=== PATIENT | male | born 1980 ===

== ENCOUNTER 2022-09-23 14:20 | Emergency (ER) | payer OTHER, SELFPAY ==
--- NOTE | 2022-09-23 15:35 | DI.RAD.S_ITS ---
PROCEDURE: XR SHOULDER RT MIN 2V INDICATIONS: injury, heavy lifting TECHNIQUE: 3 views of the shoulder were acquired. COMPARISON: [facility], CR, XR ELBOW RT MIN 3V, 09/23/2022, 15:49. FINDINGS: Bones: No fractures or dislocations. No suspicious bony lesions. Visualized ribs appear intact. Soft tissues: No suspicious soft tissue calcifications. The visualized lung demonstrates an unremarkable appearance. IMPRESSION: No focal plain film abnormality can be seen. If it would be helpful for clinical management decision making, please consider a dedicated, scheduled shoulder MRI for further evaluation (assuming that there is no contraindication). Dictated by: Austyn Davidson M.D. on 09/23/2022 at 15:37 Approved by: Austyn Davidson M.D. on 09/23/2022 at 15:37
[2022-09-23 15:36] VITALS: BP 148/88; PULSE 85; RESP 19; TEMP 36.9; O2SAT 98; BMI 33.4
--- NOTE | 2022-09-23 15:36 | DI.RAD.S_ITS ---
PROCEDURE: XR ELBOW RT MIN 3V INDICATIONS: injury, heavy lifting. TECHNIQUE: 3 views of the elbow were acquired. COMPARISON: [facility], CR, XR SHOULDER RT MIN 2V, 09/23/2022, 15:49. FINDINGS: Bones: No prem acute fracture can be seen. There is focal irregularity seen of the radial head, with the appearance of a remote injury. No additional focal bony abnormality can be seen. Soft tissues: No elbow joint effusion. No suspicious soft tissue calcifications. IMPRESSION: Apparent remote injury of the radial head. If clinically appropriate, please consider follow-up CT versus scheduled elbow MRI for further evaluation (assuming that there is no contraindication). Dictated by: Austyn Davidson M.D. on 09/23/2022 at 15:38 Approved by: Austyn Davidson M.D. on 09/23/2022 at 15:39
--- NOTE | 2022-09-23 20:38 | ED_ITS ---
HPI - Extremity Injury (Upper) General Chief Complaint: Extremity Injury, Upper Stated Complaint: shoulder and elbow pain, R Time Seen by Provider: 09/23/22 20:31 Source: patient Mode of arrival: Family Vehicle History of Present Illness HPI narrative: Patient is a 42-year-old male who presents with right shoulder pain and elbow pain ongoing for the last 4 months. He is not sure of an exact injury. Today it hurts a little bit more especially in his forearm. It hurts when he tries to lift it he has very limited range of motion in his shoulder. He has no numbness or tingling. He has no neck pain. He denies sudden onset of arm weakness for months ago. He has no history of hypertension hyperlipidemia or CVA. Does not go to doctors. Related Data Allergies Allergy/AdvReac Type Severity Reaction Status Date / Time No Known Drug Allergies Allergy Verified 09/23/22 15:40 Review of Systems Review of Systems Narrative: GENERAL: Denies chills,fever HEENT: Denies throat pain RESPIRATORY: Denies dyspnea, cough, wheezing CARDIOVASCULAR: Denies chest pain, palpitations GASTROINTESTINAL: Denies nausea, vomiting MUSCULOSKELETAL: See HPI SKIN: No rash, no laceration, no pruritus NEUROLOGIC: Denies weakness, dizziness, headache, numbness 8 point review of systems is negative except for those stated above and HPI Patient History Social History Smoking Status: Current every day smoker Smoking Status: Current every day smoker tobacco type: cigarettes alcohol intake frequency: 0-2 drinks per day Substance Use Type: does not use Exam Initial Vital Signs Initial Vital Signs: Vital Signs Temperature 98.5 F 09/23/22 15:36 Pulse Rate 85 09/23/22 15:36 Respiratory Rate 19 09/23/22 15:36 Blood Pressure 148/88 H 09/23/22 15:36 Pulse Oximetry 98 09/23/22 15:36 Oxygen Delivery Method 09/23/22 15:36 GENERAL: Alert well-appearing 42-year-old male CARDIOVASCULAR: peripheral pulses in tact, cap refill <2 sec RESPIRATORY: No respiratory distress, speaks in full sentences without difficulty EXTREMITIES: Normal range of motion, no clubbing or edema. Neurovascularly intact Right shoulder significant decreased range of motion and painful with active range of motion. Decreased ab duction extension and flexion. Ulnar radial and median nerve motor and sensation intact. Sensation over the deltoid intact. Elbow flex and extend mild pain with supination and pronation. 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 NEUROLOGICAL: Cranial nerves II through XII grossly intact. Normal gait and speech. SKIN: Warm, dry, no petechiae, no rashes or lesions. Course Orders Ordered: ED Orders 09/23/22 15:35 XR shoulder RT min 2V Stat 09/23/22 15:36 XR elbow RT min 3V Stat Vital Signs Vital signs: Vital Signs - 8 hr 09/23/22 15:36 Temperature 98.5 F Pulse Rate 85 Respiratory Rate 19 Blood Pressure 148/88 H Pulse Oximetry 98 Oxygen Delivery Method Room Air MDM - Extremity Injury (Upper) Imaging Data Extremity x-ray #1: Radiologist's Impression: [address] [place] [id number] XRay Report Signed Patient: Jimy Jc MR#: [id number] : 1980 Acct:[id number] Age/Sex: 42 / M Date of Service: 09/23/22 Loc: ED Accession Number: [id number] ?? Procedure: XR shoulder RT min 2V Ordering Provider: Paty Rios D.O. PROCEDURE:? XR SHOULDER RT MIN 2V ? INDICATIONS:? injury, heavy lifting ? TECHNIQUE:? 3 views of the shoulder were acquired.? ? COMPARISON:? [facility], , XR ELBOW RT MIN 3V, 09/23/2022, 15:49. ? FINDINGS:? ? Bones:? No fractures or dislocations.? No suspicious bony lesions.? Visualized ribs appear intact.? ? Soft tissues:? No suspicious soft tissue calcifications.? The visualized lung demonstrates an unremarkable appearance. ? ? IMPRESSION:? No focal plain film abnormality can be seen. ? If it would be helpful for clinical management decision making, please consider a dedicated, scheduled shoulder MRI for further evaluation (assuming that there is no contraindication).? ? ? Dictated by: Austyn Davidson M.D. on 09/23/2022 at 15:37 ? ? Approved by: Austyn Davidson M.D. on 09/23/2022 at 15:37 ? Extremity x-ray #2: Radiologist's Impression: XRay Report Signed Patient: Jimy Jc MR#: [id number] : 1980 Acct:[id number] Age/Sex: 42 / M Date of Service: 09/23/22 Loc: ED Accession Number: [id number] ?? Procedure: XR elbow RT min 3V Ordering Provider: Paty Rios D.O. PROCEDURE:? XR ELBOW RT MIN 3V ? INDICATIONS:? injury, heavy lifting. ? TECHNIQUE:? 3 views of the elbow were acquired.? ? COMPARISON:? [facility], CR, XR SHOULDER RT MIN 2V, 09/23/2022, 15:49. ? FINDINGS:? ? Bones:? No prem acute fracture can be seen.? There is focal irregularity seen of the radial head, with the appearance of a remote injury.? No additional focal bony abnormality can be seen. ? Soft tissues:? No elbow joint effusion.? No suspicious soft tissue calcifications.? ? ? IMPRESSION:? Apparent remote injury of the radial head. ? If clinically appropriate, please consider follow-up CT versus scheduled elbow MRI for further evaluation (assuming that there is no contraindication).? ? ? Dictated by: Austyn Davidson M.D. on 09/23/2022 at 15:38 ? ? Approved by: Austyn Davidson M.D. on 09/23/2022 at 15:39 ? MDM Narrative Medical decision making narrative: Patient has had 4 months of ongoing right arm weakness. It is painful with palpation and movement. X-rays are negative. I think less likely stroke due to pain full range of motion. Probably needs outpatient MRI. Will need to have PCP and orthopedic follow-up. Does feel better with the sling. He is offered pain medicine but declines at this time. Discharge Plan Departure Patient Disposition: Home Clinical Impression: Shoulder sprain Instructions: DI for Shoulder Sprain Activity Restrictions/Additional Instructions: *You have been diagnosed with right shoulder injury and sprain *What to do: You will need a primary care provider and outpatient MRI of her shoulder to figure out what is going on. Wear sling as needed while active be sure to take arm out a few times a day and while sleeping *Continue to take medications as directed Tylenol 650 mg every 4-6 hours if needed for [id number] pain Motrin 600 mg every 6 hours if needed for [id number] *Follow up with your primary care provider in 2-3 days or call [phone] [facility], call on Sunday his schedule follow-up appointment *Return to ER if you should have increasing pain weakness or any new, worsening or concerning symptoms Referrals: [facility] [Provider Group] Stand Alone Forms: Work Release Note Visit Report Forms: Patient Portal/API
== END 2022-09-23 20:54 | disposition home or self-care (01) ==
PROVIDERS: Emergency Provider Emergency Medicine
DX: S43.401A Unspecified sprain of right shoulder joint, initial encounter (principal); X50.0XXA Overexertion from strenuous movement or load, initial encounter
CPT/HCPCS: 73030; 73080; 99283

== ENCOUNTER → 2024-01-03 14:34 | Outpatient (CLI) | payer OTHER, MEDICAID, SELFPAY ==
[2024-01-03 16:08] LABS: Urine N gonorrhoeae NOT DETECTED
[2024-01-03 16:17] LABS: Urine Chlamydia NOT DETECTED
[2024-01-03 20:40] LABS: HIV 1 & 2 Ab/Ag 4th Gen Combo NEGATIVE (NEGATIVE); Hep C Virus Ab w/Reflex Quant NEGATIVE s/c (NEGATIVE); Hepatitis B Surface Antigen NEGATIVE s/c (NEGATIVE)
[2024-01-06 09:04] LABS: RPR Screen Non Reactive (Non Reactive)
[2024-01-06 18:42] LABS: HSV 2 IGG AB < 0.91 index (0.00-0.90); HSV1IGG < 0.91 index (0.00-0.90)
== END ==
PROVIDERS: Referring Provider Physician Assistant Surgical; Visit Provider Physician Assistant Surgical
DX: Z20.2 Contact with and (suspected) exposure to infections with a predominantly sexual mode of transmission (principal)
CPT/HCPCS: 36415; 86592; 86695; 86696; 86803; 87340; 87389; 87491; 87591